=== PATIENT | female | born 1935 | race Caucasian/White ===

== ENCOUNTER 2017-07-17 12:19 | Emergency (ER) | payer MEDICARE, OTHER ==
[2017-07-17 13:46] LABS: #Basophils 0.1 thou/uL (0.0-0.2); #Monocytes 0.6 thou/uL (0.11-0.59); #Neutrophils 4.2 thou/uL (1.40-6.50); %Basophils 1.3 % (0.0-1.0); %Eosinophils 0.8 % (0.0-10.0); %Lymphocytes 17.3 % (21.0-51.0); Hematocrit 44.6 % (36.0-47.0); Mean Platelet Volume 7.1 fL (7.4-10.4); Red Blood Cell (RBC) Count 5.31 mill/uL (4.20-5.40); White Blood Cell (WBC) Count 5.9 thou/uL (4.8-10.8)
[2017-07-17 13:52] LABS: Prothrombin Time 19.1 SEC (12.0-14.7)
[2017-07-17 13:58] LABS: ALT (SGPT) 27 U/L (8-55); AST (SGOT) 28 U/L (5-34); Alkaline Phosphatase 57 U/L (40-150); Anion Gap 15 mmol/L (10-20); BUN (Urea Nitrogen) 22 mg/dL (9.8-20.1); Bilirubin, Total 0.5 mg/dL (0.2-1.2); Calc. Creatinine Clearance 0 mL/min (70-130); Calcium 9.3 mg/dL (7.8-10.44); Carbon Dioxide 28 mmol/L (23-31); Chloride 102 mmol/L (98-107); Estimated GFR-MDRD 64; Globulin 2.4 g/dL (2.4-3.5); Protein, Total 6.3 g/dL (6.0-8.3)
[2017-07-17 14:02] LABS: Troponin I 0.017 ng/mL (< 0.028)
--- NOTE | 2017-07-17 14:16 | CT ---
CT HEAD NONCONTRAST: HISTORY: Dizziness. FINDINGS: No comparison. There is no evidence of acute intracranial hemorrhage or infarct. Diffuse cortical atrophy and chronic ischemic small-vessel disease are apparent. There is no m ass effect or shift o f midline structures. Visualized paranasal sinuses remain well aerated. IMPRESSION: No acute intracranial abnormalities are demonstrated on noncontrast CT head. POS: [facility]
--- NOTE | 2017-07-17 14:20 | RAD ---
CHEST 2 VIEWS: History Cough. COMPARISON: 05/08/09. FINDINGS: Cardiac silhouette and pulmonary vasculature are unremarkable. Mediastinum is midline with aortic c alcification. There is no confluent airspace consolidation, pneumothorax, or pleural fluid evident. IMPRESSION: No active cardiopulmonary abnormalities are demonstrated. POS: [facility]
== END 2017-07-17 15:09 | disposition home or self-care (01) ==
LOC: SCSER 12:19
DX: J30.9 Allergic rhinitis, unspecified (principal); R42 Dizziness and giddiness; I10 Essential (primary) hypertension; E78.5 Hyperlipidemia, unspecified; F32.9 Major depressive disorder, single episode, unspecified; Z79.899 Other long term (current) drug therapy
CPT/HCPCS: 36415; 70450; 71020; 80053; 82553; 84484; 85025; 85610; 85730; 96360

== ENCOUNTER 2017-12-20 09:21 | Outpatient (CLI) | payer MEDICARE, OTHER | END 2017-12-20 09:22 | disposition home or self-care (01) | LOC: BICCT 09:21 | PROVIDERS: ATTEND Internal Medicine | DX: Z12.31 Encounter for screening mammogram for malignant neoplasm of breast (principal); F03.90 Unspecified dementia, unspecified severity, without behavioral disturbance, psychotic disturbance, mood disturbance, and anxiety; R41.3 Other amnesia; S06.5X0A Traumatic subdural hemorrhage without loss of consciousness, initial encounter; G91.2 (Idiopathic) normal pressure hydrocephalus; Z85.3 Personal history of malignant neoplasm of breast | CPT/HCPCS: 70450; 77063; 77067 ==

== ENCOUNTER 2018-12-22 08:26 | Outpatient (CLI) | payer MEDICARE, OTHER ==
--- NOTE | 2018-12-22 18:22 | MMO ---
Bilateral MAMMO Bilat Screen [facility]. CLINICAL HISTORY: Patient is 83 years old and is seen for screening. The patient has no family history of breast cancer. 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 The patient has a history of left Lumpectomy in August, - malignant. VIEWS: The views performed were: bilateral craniocaudal with tomosynthesis and bilateral mediolateral oblique with tomosynthesis. FILMS COMPARED: The present examination has been compared to prior imaging studies performed at [facility] on 01/11/2006, 07/27/2007, 08/06/2008, 10/29/2014, 10/30/2015, 12/03/2016 and 12/20/2017, and at [facility] on 07/24/1998, 09/11/1999, 10/12/2000, 08/24/2002, 12/20/2003, 12/28/2003 and 12/10/2004. MAMMOGRAM FINDINGS: There are scattered fibroglandular densities. There are benign appearing calcifications. There are no suspicious masses, calcifications or areas of architectural distortion. IMPRESSION: FINDINGS IN BOTH BREASTS ARE BENIGN. A ROUTINE FOLLOW-UP MAMMOGRAM IN 1 YEAR IS RECOMMENDED. THE RESULTS OF THIS EXAM WERE SENT TO THE PATIENT. ACR BI-RADS Category 2 - Benign finding MAMMOGRAPHY NOTE: 1. A negative mammogram report should not delay a biopsy if a dominant of clinically suspicious mass is present. 2. Approximately 10% to 15% of breast cancers are not detected by mammography. 3. Adenosis and dense breasts may obscure an underlying neoplasm.
== END 2018-12-22 08:27 | disposition home or self-care (01) ==
LOC: BICMAMMO 08:26
PROVIDERS: ATTEND Internal Medicine
DX: Z12.31 Encounter for screening mammogram for malignant neoplasm of breast (principal); Z85.3 Personal history of malignant neoplasm of breast; Z98.890 Other specified postprocedural states
CPT/HCPCS: 77063; 77067

== ENCOUNTER 2020-12-16 09:40 | Day surgery (SDC) | payer MEDICARE ==
[2020-12-13 12:07] VITALS: BMI 19.7
[2020-12-16] MEDS ORDERED: PROPOFOL 20 ML ONE (12:00)
[2020-12-16] MEDS ORDERED: Lidocaine 1% PF 5 ML VIAL ONE (12:00)
[2020-12-16] MEDS ORDERED: PHENYLEPHRINE-NS 100 MCG/ML 10 ML SYRINGE ONE (12:23)
== END 2020-12-16 13:32 | disposition home or self-care (01) ==
LOC: CCL 09:40
PROVIDERS: ATTEND Internal Medicine Cardiovascular Disease
PROC: 5A2204Z Restoration of Cardiac Rhythm, Single (ICD-10-PCS; principal; 2020-12-16)
DX: I48.92 Unspecified atrial flutter (principal); I48.0 Paroxysmal atrial fibrillation; I10 Essential (primary) hypertension; I25.10 Atherosclerotic heart disease of native coronary artery without angina pectoris; F03.90 Unspecified dementia, unspecified severity, without behavioral disturbance, psychotic disturbance, mood disturbance, and anxiety; E78.5 Hyperlipidemia, unspecified; M81.0 Age-related osteoporosis without current pathological fracture; Z79.01 Long term (current) use of anticoagulants; Z79.82 Long term (current) use of aspirin; Z79.899 Other long term (current) drug therapy
CPT/HCPCS: 92960; 93005; 93010; J2704

== ENCOUNTER 2021-09-22 09:15 | Inpatient (IN) | payer MEDICARE ==
[2021-09-22 11:49] LABS: Prothrombin Time 11.4 sec (9.5-12.1)
[2021-09-22 11:56] LABS: Hemoglobin 14.6 g/dL (12.0-15.5); Mean Corpuscular HGB CONC 32.7 g/dL (32.0-36.0); Mean Corpuscular Hemoglobin 28.9 pg (27.0-33.0); Mean Corpuscular Volume 88.3 fl (81.6-98.3); Mean Platelet Volume 8.9 fl (7.4-10.4); Platelet Count 135 10x3/uL (150-450); RBC Distribution Width 16.3 % (11.5-14.5); Red Blood Cell (RBC) Count 5.06 10x6/uL (3.90-5.03); White Blood Cell (WBC) Count 5.4 10x3/uL (3.5-10.5)
[2021-09-22 12:07] LABS: ALT (SGPT) 56 U/L (8-55); AST (SGOT) 63 U/L (5-34); Albumin 4.3 g/dL (3.4-4.8); Alkaline Phosphatase 140 U/L (40-110); Anion Gap 15 mmol/L (10-20); BUN (Urea Nitrogen) 18 mg/dL (9.8-20.1); Bilirubin, Total 0.4 mg/dL (0.2-1.2); Calc. Creatinine Clearance 0 mL/min (70-130); Carbon Dioxide 25 mmol/L (23-31); Chloride 106 mmol/L (98-107); Globulin 2.3 g/dL (2.4-3.5); Glucose 98 mg/dL (83-110); Potassium 3.7 mmol/L (3.5-5.1); Protein, Total 6.6 g/dL (5.8-8.1); Sodium 142 mmol/L (136-145)
[2021-09-22 17:37] LABS: SARS-CoV-2 PCR by NAA Not Detected (NotDetected)
[2021-09-25] MEDS ORDERED: Protamine Sulfate 50 MG/5 ML VIAL ONE (12:06)
[2021-09-25] MEDS ORDERED: Heparin 10,000 UNITS/ 10 ML VIAL ONE (12:06)
[2021-09-25] MEDS ORDERED: Fentanyl 100 MCG/2 ML VIAL ONE (13:43)
[2021-09-25] MEDS ORDERED: Rocuronium Bromide 10 MG/ML (10ML VIAL) ONE (13:58)
[2021-09-25] MEDS ORDERED: Dexamethasone 20 MG/5 ML VIAL ONE (13:58)
[2021-09-25] MEDS ORDERED: Glycopyrrolate 0.2 MG/ML 5 ML SYRINGE ONE (13:58)
[2021-09-25] MEDS ORDERED: PROPOFOL 200 MG/20 ML VIAL ONE (13:58)
[2021-09-25] MEDS ORDERED: Ketorolac Tromethamine 30 MG/ML VIAL ONE (13:58)
[2021-09-25] MEDS ORDERED: Ondansetron PF 4 MG/2 ML Vial ONE (13:58)
[2021-09-25] MEDS ORDERED: Lidocaine 1% PF 5 ML VIAL ONE (13:58)
[2021-09-25] MEDS ORDERED: CEFAZOLIN 1 GM VIAL ONE (14:00)
[2021-09-25] MEDS ORDERED: Acetaminophen 325 MG TAB PO PRN (14:02)
[2021-09-25] MEDS ORDERED: Artificial Tear Sol 15 ML BOT EA EYE PRN (14:03)
[2021-09-25] MEDS ORDERED: Benzonatate 100 MG CAP PO PRN (14:03)
[2021-09-25] MEDS ORDERED: hydrALAZINE 20 MG/ML VIAL SLOW IVP PRN (14:03)
[2021-09-25] MEDS ORDERED: Ondansetron PF 4 MG/2 ML Vial IVP PRN (14:03)
[2021-09-25] MEDS ORDERED: Cepastat Lozenges 1 LOZ PO PRN (14:03)
[2021-09-25] MEDS ORDERED: Calcium Carbonate 500 MG ChewTAB PO PRN (14:03)
[2021-09-25] MEDS ORDERED: Furosemide 20 MG/2 ML VIAL ONE (15:59)
[2021-09-25 19:50] VITALS: BMI 20.2
[2021-09-25] MEDS: Apixaban 2.5 MG TAB PO SCH (20:56)
[2021-09-25] MEDS: Zonisamide 25 MG CAP PO SCH (20:57)
[2021-09-25] MEDS ORDERED: Latanoprost 0.005% Ophth Soln 2.5 ml Bottle EA EYE SCH (21:00)
[2021-09-26] MEDS ORDERED: Melatonin 3 MG TAB PO PRN (00:01)
[2021-09-26] MEDS ORDERED: Levothyroxine Sodium 25 MCG TAB PO SCH (06:00)
[2021-09-26] MEDS ORDERED: Amlodipine 5 MG TAB PO SCH (09:00)
[2021-09-26] MEDS ORDERED: Aspirin 81 mg Enteric Coated Tablet PO SCH (09:00)
[2021-09-26] MEDS ORDERED: Amiodarone 200 MG TAB PO SCH (09:00)
[2021-09-26] MEDS ORDERED: lamoTRIgine 100 MG TAB PO SCH (09:00)
[2021-09-26] MEDS: Apixaban 2.5 MG TAB PO SCH (09:41)
[2021-09-26] MEDS: Zonisamide 25 MG CAP PO SCH (09:41)
[2021-09-26 11:21] VITALS: BP 140/62; TEMP 98.3
== END 2021-09-26 11:50 | disposition home or self-care (01) | DRG 274 ==
LOC: SURG A 09-25 10:05 → 2SW 09-25 17:51
PROVIDERS: ADMIT Internal Medicine Cardiovascular Disease; ATTEND Internal Medicine Cardiovascular Disease
PROC: 02L73DK Occlusion of Left Atrial Appendage with Intraluminal Device, Percutaneous Approach (ICD-10-PCS; principal; 2021-09-25)
PROC: B24BZZ4 Ultrasonography of Heart with Aorta, Transesophageal (ICD-10-PCS; 2021-09-25)
DX: I48.0 Paroxysmal atrial fibrillation (principal); R29.6 Repeated falls; Z00.6 Encounter for examination for normal comparison and control in clinical research program; Z20.822 Contact with and (suspected) exposure to COVID-19; I49.5 Sick sinus syndrome; I10 Essential (primary) hypertension; I25.10 Atherosclerotic heart disease of native coronary artery without angina pectoris; E78.5 Hyperlipidemia, unspecified; H40.9 Unspecified glaucoma; F03.90 Unspecified dementia, unspecified severity, without behavioral disturbance, psychotic disturbance, mood disturbance, and anxiety; E03.9 Hypothyroidism, unspecified; Z82.49 Family history of ischemic heart disease and other diseases of the circulatory system; Z84.89 Family history of other specified conditions; Z79.890 Hormone replacement therapy; Z79.899 Other long term (current) drug therapy; Z88.8 Allergy status to other drugs, medicaments and biological substances; Z95.5 Presence of coronary angioplasty implant and graft; Z85.3 Personal history of malignant neoplasm of breast
CPT/HCPCS: 33340; 36430; 80053; 85027; 85347; 85610; 86850; 86900; 86901; 93312; 93662; C1759; C1776; J0690; J1100; J1644; J1885; J1940; J2405; J2704; J2720; J3010; U0003; U0005

== ENCOUNTER 2021-11-06 08:54 | Outpatient (CLI) | payer MEDICARE ==
[2021-11-06 10:43] LABS: Hemoglobin 13.2 g/dL (12.0-15.5); Mean Corpuscular HGB CONC 31.7 g/dL (32.0-36.0); Mean Corpuscular Hemoglobin 29.1 pg (27.0-33.0); Mean Corpuscular Volume 91.6 fl (81.6-98.3); Mean Platelet Volume 8.6 fl (7.4-10.4); Platelet Count 155 10x3/uL (150-450); Red Blood Cell (RBC) Count 4.54 10x6/uL (3.90-5.03); White Blood Cell (WBC) Count 5.4 10x3/uL (3.5-10.5)
[2021-11-06 10:50] LABS: Prothrombin Time 11.4 sec (9.5-12.1)
[2021-11-06 11:00] LABS: Anion Gap 14 mmol/L (10-20); BUN (Urea Nitrogen) 21 mg/dL (9.8-20.1); Calc. Creatinine Clearance 0 mL/min (70-130); Calcium 9.7 mg/dL (7.8-10.44); Carbon Dioxide 29 mmol/L (23-31); Chloride 105 mmol/L (98-107); Glucose 109 mg/dL (83-110); Potassium 3.2 mmol/L (3.5-5.1); Sodium 145 mmol/L (136-145)
[2021-11-07 09:12] LABS: SARS-CoV-2 PCR by NAA Not Detected (NotDetected)
== END 2021-11-06 08:55 | disposition home or self-care (01) ==
LOC: LABBT 08:54
PROVIDERS: ATTEND Internal Medicine Cardiovascular Disease
DX: Z01.812 Encounter for preprocedural laboratory examination (principal); I48.0 Paroxysmal atrial fibrillation; Z20.822 Contact with and (suspected) exposure to COVID-19
CPT/HCPCS: 80048; 85027; 85610; U0003; U0005

== ENCOUNTER → 2021-11-11 | Day surgery (SDC) | payer MEDICARE ==
[2021-10-30 11:08] VITALS: BMI 19.3
[~2021-11-11] MED LIST: Lidocaine 1% PF 5 ML VIAL ONE; PROPOFOL 200 MG/20 ML VIAL ONE
== END ==
LOC: SDC 05:51
PROVIDERS: ATTEND Internal Medicine Cardiovascular Disease
PROC: B246ZZ4 Ultrasonography of Right and Left Heart, Transesophageal (ICD-10-PCS; principal; 2021-11-11)
DX: I48.0 Paroxysmal atrial fibrillation (principal); I70.0 Atherosclerosis of aorta; I11.9 Hypertensive heart disease without heart failure; I48.92 Unspecified atrial flutter; I49.5 Sick sinus syndrome; I25.10 Atherosclerotic heart disease of native coronary artery without angina pectoris; E78.5 Hyperlipidemia, unspecified; F03.90 Unspecified dementia, unspecified severity, without behavioral disturbance, psychotic disturbance, mood disturbance, and anxiety; E03.9 Hypothyroidism, unspecified; Z79.01 Long term (current) use of anticoagulants; Z79.82 Long term (current) use of aspirin; Z79.899 Other long term (current) drug therapy; Z88.8 Allergy status to other drugs, medicaments and biological substances; Z95.5 Presence of coronary angioplasty implant and graft; Z95.818 Presence of other cardiac implants and grafts
CPT/HCPCS: 93312